=== PATIENT | male | born 1970 | race Caucasian/White ===

== ENCOUNTER 2017-12-16 11:38 | Inpatient (IN) | payer OTHER ==
[~2017-12-16] VITALS: Ht 182.9 cm; Wt 70.8 kg
[2017-12-16] MEDS ORDERED: HYDROmorphone 2 MG/ML, 1ML ONE ×3 (11:49→13:33)
[2017-12-16] MEDS: HYDROmorphone 1 MG/ML, 1ML IVPush PRN ×2 (11:58→12:55)
[2017-12-16] MEDS ORDERED: PLEASE ENTER HEIGHT AND WEIGHT MC SCH (12:00)
[2017-12-16] MEDS ORDERED: PLEASE ENTER ALLERGIES MC SCH (12:00)
[2017-12-16] MEDS ORDERED: SODIUM CHLORIDE FLUSH 10ML SYR IVF ONE (12:00)
[2017-12-16] MEDS ORDERED: DIPH,PERTUSS(ACELL),TET VAC/PF 0.5 ML IM-VACC ONE ×2 (12:00→12:48)
[2017-12-16 12:05] LABS: BASOPHILS # (AUTO) 0.04 x10^3/uL (0-0.1); BASOPHILS % (AUTO) 1 % (0-1); EOSINOPHILS % (AUTO) 3 % (1-7); LYMPHOCYTES # (AUTO) 2.41 x10^3/uL (1-3.4); LYMPHOCYTES % (AUTO) 38 % (22-44); MD NO; MEAN PLATELET VOLUME 8.7 fL (7.4-10.4); MONOCYTES # (AUTO) 0.48 x10^3/uL (0.2-0.8); MONOCYTES % (AUTO) 8 % (2-9); NEUTROPHILS # (AUTO) 3.17 x10^3/uL (1.8-6.8); NEUTROPHILS % (AUTO) 50 % (42-75); PLATELET COUNT 221 x10^3/uL (130-400)
[2017-12-16 12:16] LABS: INTERNATIONAL NORMALIZED RATIO 0.97 (0.93-1.1)
[2017-12-16 12:18] LABS: ALBUMIN 3.6 g/dL (3.4-5.0); ANION GAP 10 mmol/L (5-15); CALCIUM 8.7 mg/dL (8.5-10.1); CHLORIDE 110 mmol/L (98-107)
[2017-12-16 12:21] LABS: ALANINE AMINOTRANSFERASE 20 U/L (12-78); ALKALINE PHOSPHATASE 67 U/L (45-117); BILIRUBIN,TOTAL 0.3 mg/dL (0.2-1.0); TOTAL PROTEIN 6.9 g/dL (6.4-8.2)
[2017-12-16] MEDS ORDERED: CEFAZOLIN 2,000 MG in SODIUM CHLORIDE 0.9% 50 ML IVPB ONE (13:00)
[2017-12-16] MEDS ORDERED: HYDROmorphone 2 MG/ML, 1ML IVPush PRN (13:30)
[2017-12-16] MEDS ORDERED: ONDANSETRON 2MG/ML, 2ML IVPush ONE (13:30)
[2017-12-16] MEDS ORDERED: ONDANSETRON ODT 4 MG ONE (13:33)
[2017-12-16] MEDS ORDERED: ONDANSETRON ODT 4 MG PO ONE (14:00)
[2017-12-16] MEDS ORDERED: hydrALAzine 20 MG/ML, 1ML IVPush PRN (15:00)
[2017-12-16] MEDS ORDERED: ONDANSETRON 2MG/ML, 2ML IVPush PRN (15:00)
[2017-12-16] MEDS ORDERED: PROMETHAZINE 25 MG/ML, 1ML IM PRN (15:00)
[2017-12-16] MEDS ORDERED: ONDANSETRON ODT 4 MG PO PRN (15:00)
[2017-12-16] MEDS ORDERED: LABETALOL 5MG/ML, 20ML IVPush PRN (15:00)
[2017-12-16 15:14] LABS: TROPONIN I < 0.015 ng/mL (0.000-0.045)
[2017-12-16 15:22] VITALS: BP 138/70
[2017-12-16 15:39] VITALS: BP 133/77
[2017-12-16] MEDS: LACTATED RINGERS 1,000 ML IV SCH (15:43)
[2017-12-16] MEDS: HYDROmorphone 2 MG/ML, 1ML IVPush PRN ×2 (15:47→17:28)
[2017-12-16 15:52] LABS: CREATININE 0.99 mg/dL (0.7-1.3)
[2017-12-16 15:53] LABS: RED BLOOD COUNT 4.27 x10^6/uL (4.38-5.82)
[2017-12-16 15:54] LABS: MEAN CORPUSCULAR HEMOGLOBIN 30.8 pg (27.5-34.5); MEAN CORPUSCULAR HGB CONC 33.9 g/dL (33.2-36.2); MEAN CORPUSCULAR VOLUME 90.6 fL (81-97); RED CELL DISTRIBUTION WIDTH 13.9 % (9.4-14.8)
[2017-12-16] MEDS ORDERED: METOCLOPRAMIDE 5 MG/ML, 2ML IVPush PRN (16:00)
[2017-12-16 19:01] VITALS: BP 148/78
[2017-12-16] MEDS: ERYTHROMYCIN OPHTH 0.5%, 1GM RIGHTEYE SCH (20:50)
[2017-12-16 21:06] VITALS: BP 141/85
[2017-12-16] MEDS ORDERED: BACITRACIN OINT 500U/GM, 15 GM ONE (21:27)
[2017-12-16] MEDS ORDERED: LIDOCAINE 1%-EPI 1:100K, 30ML ONE (21:27)
[2017-12-16] MEDS ORDERED: LIDOCAINE/PF 1%, 30ML ONE (22:25)
[2017-12-16] MEDS ORDERED: SODIUM BICARBONATE 1 MEQ/ML, 50ML VIAL ONE (22:26)
[2017-12-16 22:36] LABS: AMPHETAMINE SCREEN, URINE Negative (Negative); BARBITURATE SCREEN, URINE Negative (Negative); BENZODIAZEPINE SCREEN, URINE Negative (Negative); CANNABINOID SCREEN, URINE Positive (Negative); COCAINE SCREEN, URINE Positive (Negative); METHADONE SCREEN, URINE Negative (Negative); OPIATE SCREEN, URINE Positive (Negative)
[2017-12-16 23:13] VITALS: BP 135/83
[2017-12-17 03:21] VITALS: BP 114/75
[2017-12-17 03:22] LABS: BASOPHILS # (AUTO) 0.07 x10^3/uL (0-0.1); BASOPHILS % (AUTO) 1 % (0-1); EOSINOPHILS # (AUTO) 0.07 x10^3/uL (0-0.4); EOSINOPHILS % (AUTO) 1 % (1-7); LYMPHOCYTES # (AUTO) 1.87 x10^3/uL (1-3.4); LYMPHOCYTES % (AUTO) 19 % (22-44); MD NO; MEAN CORPUSCULAR HEMOGLOBIN 31.1 pg (27.5-34.5); MEAN CORPUSCULAR HGB CONC 33.9 g/dL (33.2-36.2); MEAN CORPUSCULAR VOLUME 91.5 fL (81-97); MEAN PLATELET VOLUME 8.4 fL (7.4-10.4); MONOCYTES # (AUTO) 0.75 x10^3/uL (0.2-0.8); MONOCYTES % (AUTO) 8 % (2-9); NEUTROPHILS # (AUTO) 7.21 x10^3/uL (1.8-6.8); NEUTROPHILS % (AUTO) 72 % (42-75); PLATELET COUNT 179 x10^3/uL (130-400); RED BLOOD COUNT 3.82 x10^6/uL (4.38-5.82); RED CELL DISTRIBUTION WIDTH 14.4 % (9.4-14.8)
[2017-12-17 03:30] LABS: ALANINE AMINOTRANSFERASE 19 U/L (12-78); ALBUMIN 3.2 g/dL (3.4-5.0); ANION GAP 6 mmol/L (5-15); CHLORIDE 107 mmol/L (98-107)
[2017-12-17 03:32] LABS: ALKALINE PHOSPHATASE 47 U/L (45-117); BILIRUBIN,TOTAL 0.5 mg/dL (0.2-1.0); TOTAL PROTEIN 6.1 g/dL (6.4-8.2)
[2017-12-17] MEDS: ERYTHROMYCIN OPHTH 0.5%, 1GM RIGHTEYE SCH ×4 (04:13→20:25)
[2017-12-17] MEDS: HYDROmorphone 2 MG/ML, 1ML IVPush PRN ×2 (04:13→20:23)
[2017-12-17] MEDS: LACTATED RINGERS 1,000 ML IV SCH ×2 (04:13→12:22)
[2017-12-17 07:05] VITALS: BP 127/78
[2017-12-17 12:16] VITALS: BP 120/75
[2017-12-17] MEDS ORDERED: FENTANYL PF 100 MCG/2ML ONE (17:09)
[2017-12-17] MEDS ORDERED: MIDAZOLAM 1 MG/ML, 2ML ONE (17:09)
[2017-12-17] MEDS ORDERED: CEFAZOLIN 1,000 MG ONE (18:01)
[2017-12-17] MEDS ORDERED: LIDOCAINE/PF 1%, 30ML ONE (18:08)
[2017-12-17] MEDS ORDERED: BALANCED SALT OPHTH IRRIG SOLN 18ML ONE (18:34)
[2017-12-17] MEDS ORDERED: BACITRACIN OINT 500U/GM, 15 GM ONE (18:37)
[2017-12-17] MEDS ORDERED: CEFAZOLIN PMX 2GM/50ML 50 ML IV SCH (19:30)
[2017-12-17 20:28] VITALS: BP 115/75
[2017-12-17] MEDS: CEFAZOLIN 2,000 MG in SODIUM CHLORIDE 0.9% 50 ML IVPB SCH (21:06)
[2017-12-17] MEDS: BACITRACIN OPHTH OINT 500U/GM, 3.5 GM RIGHTEYE SCH (21:06)
[2017-12-18] MEDS: LACTATED RINGERS 1,000 ML IV SCH ×2 (00:20→10:00)
[2017-12-18] MEDS: ERYTHROMYCIN OPHTH 0.5%, 1GM RIGHTEYE SCH ×2 (01:30→08:00)
[2017-12-18] MEDS: HYDROmorphone 2 MG/ML, 1ML IVPush PRN (01:30)
[2017-12-18] MEDS: CEFAZOLIN 2,000 MG in SODIUM CHLORIDE 0.9% 50 ML IVPB SCH (04:18)
[2017-12-18 04:20] VITALS: BP 142/81
[2017-12-18 06:04] LABS: BASOPHILS # (AUTO) 0.04 x10^3/uL (0-0.1); BASOPHILS % (AUTO) 1 % (0-1); EOSINOPHILS # (AUTO) 0.08 x10^3/uL (0-0.4); EOSINOPHILS % (AUTO) 1 % (1-7); LYMPHOCYTES # (AUTO) 1.77 x10^3/uL (1-3.4); LYMPHOCYTES % (AUTO) 20 % (22-44); MD NO; MEAN CORPUSCULAR HEMOGLOBIN 30.9 pg (27.5-34.5); MEAN CORPUSCULAR HGB CONC 33.8 g/dL (33.2-36.2); MEAN CORPUSCULAR VOLUME 91.4 fL (81-97); MEAN PLATELET VOLUME 9.2 fL (7.4-10.4); MONOCYTES % (AUTO) 7 % (2-9); NEUTROPHILS # (AUTO) 6.23 x10^3/uL (1.8-6.8); NEUTROPHILS % (AUTO) 71 % (42-75); PLATELET COUNT 176 x10^3/uL (130-400); RED BLOOD COUNT 4.04 x10^6/uL (4.38-5.82); RED CELL DISTRIBUTION WIDTH 13.9 % (9.4-14.8)
[2017-12-18 06:11] LABS: ANION GAP 5 mmol/L (5-15); CALCIUM 8.4 mg/dL (8.5-10.1); CHLORIDE 106 mmol/L (98-107); CREATININE 0.94 mg/dL (0.7-1.3)
[2017-12-18 07:06] VITALS: BP 139/89
[2017-12-18] MEDS: BACITRACIN OPHTH OINT 500U/GM, 3.5 GM RIGHTEYE SCH (09:00)
[2017-12-18] MEDS ORDERED: AMOX1TAB64 PO (10:38)
[2017-12-18] MEDS ORDERED: MUPI15CR EXT (10:42)
== END 2017-12-18 12:00 | disposition home or self-care (01) | DRG 580 ==
LOC: EDSEX 11:38 → ED 13:28 → 5SO 13:29
PROVIDERS: ADMIT Hospitalist; ATTEND Hospitalist
PROC: 0KQ10ZZ Repair Facial Muscle, Open Approach (ICD-10-PCS; 2017-12-17)
PROC: 0KB10ZZ Excision of Facial Muscle, Open Approach (ICD-10-PCS; principal; 2017-12-17 16:30)
DX: S01.81XA Laceration without foreign body of other part of head, initial encounter (principal); S02.81XA Fracture of other specified skull and facial bones, right side, initial encounter for closed fracture; S02.40CA Maxillary fracture, right side, initial encounter for closed fracture; K92.0 Hematemesis; H31.41 Hemorrhagic choroidal detachment; S02.31XA Fracture of orbital floor, right side, initial encounter for closed fracture; F12.90 Cannabis use, unspecified, uncomplicated; F14.90 Cocaine use, unspecified, uncomplicated; H54.7 Unspecified visual loss; M50.30 Other cervical disc degeneration, unspecified cervical region; R00.1 Bradycardia, unspecified; R73.9 Hyperglycemia, unspecified; H05.20 Unspecified exophthalmos; W20.8XXA Other cause of strike by thrown, projected or falling object, initial encounter; Y93.89 Activity, other specified; Z23 Encounter for immunization; Y92.89 Other specified places as the place of occurrence of the external cause; Y99.8 Other external cause status
CPT/HCPCS: 36415; 70450; 70486; 72125; 80048; 80053; 80307; 83735; 84100; 84484; 85014; 85018; 85025; 85610; 85730; 90471; 90715; 93005; 96374; 96375; 96376; 99285; J0690; J1170; J2250; J3010; J3490; Q0162; J7120